=== PATIENT | male | born 1985 | race Caucasian/White ===

== ENCOUNTER 2022-09-17 08:51 | Emergency (ER) | payer OTHER ==
[~2022-09-17] VITALS: Ht 177.8 cm; Wt 86.5 kg
[~2022-09-17 08:51] MED LIST: HYDR-3706 PO
[2022-09-17] MEDS ORDERED: IPRATROPIUM BROMIDE 0.5 MG/2.5 ML NEB SOLUTION NEB ONE (12:30)
[2022-09-17] MEDS ORDERED: ALBUTEROL SULFATE 2.5 MG/0.5 ML NEB SOLUTION NEB ONE (12:30)
[2022-09-17 12:39] LABS: BASOPHILS % (AUTO) 0.4 % (0.0-2.0); EOSINOPHILS % (AUTO) 1.9 % (1.0-6.0); HEMATOCRIT 43.7 % (41-53); HEMOGLOBIN 14.8 g/dL (13.5-17.5); LYMPHOCYTES # (AUTO) 1.6 K/uL (1.0-4.8); LYMPHOCYTES % (AUTO) 28.1 % (22.0-44.0); MEAN CORPUSCULAR HEMOGLOBIN 31.9 pg (26.0-34.0); MEAN CORPUSCULAR HGB CONC 33.8 G/dL (31.0-37.0); MEAN CORPUSCULAR VOLUME 94 fL (80-100); MONOCYTES # (AUTO) 0.4 K/uL (0.1-1.0); MONOCYTES % (AUTO) 7.6 % (2.0-9.0); NEUTROPHILS # (AUTO) 3.5 K/uL (1.8-7.7); PLATELET COUNT (AUTO) 197 K/uL (150-450); RED BLOOD CELL COUNT(AUTO) 4.63 MIL/uL (4.50-5.90); RED CELL DISTRIBUTION WIDTH 13.3 % (11.5-14.5)
[2022-09-17 12:43] LABS: ANION GAP 10 mmol/L (8-16); CALCIUM, TOTAL 10.2 mg/dL (8.8-10.5); CARBON DIOXIDE 28 mmol/L (22-29); CHLORIDE 102 mmol/L (98-107); CREATININE 0.74 mg/dL (0.60-1.30); GLOMERULAR FILTR. RATE CALC > 60 mL/min (>60); GLUCOSE,RANDOM 105 mg/dL (70-110); POTASSIUM 4.4 mmol/L (3.5-5.1); SODIUM SERUM 140 mmol/L (136-145); UREA NITROGEN, BLOOD 11 mg/dL (7-18)
[2022-09-17 12:49] LABS: ALANINE AMINOTRANSFERASE 60 U/L (12-78); ALBUMIN 4.4 g/dL (3.4-5.0); ALKALINE PHOSPHATASE 95 U/L (46-116); ASPARTATE AMINOTRANSFERASE 37 U/L (15-37); BILIRUBIN,TOTAL 0.9 mg/dL (0.1-1.0); TOTAL PROTEIN, SERUM 7.9 g/dL (6.4-8.2)
[2022-09-17 12:59] LABS: B-TYPE NATRIURETIC PEPTIDE 6 pg/mL (0-100)
[2022-09-17] MEDS ORDERED: 0.9% SODIUM CHLORIDE 5 ML NEB SOLUTION NEB ONE (13:11)
[2022-09-17 13:54] LABS: COVID AG,FIA SOURCE NASAL SWAB
[2022-09-17 14:11] VITALS: BP 141/78
[2022-09-17 14:16] LABS: INFLUENZA TYPE A NEGATIVE FOR TYPE A (NEGATIVE); INFLUENZA TYPE B NEGATIVE FOR TYPE B (NEGATIVE)
[2022-09-17] MEDS ORDERED: ALBU18HF12 IH (14:34)
[2022-09-17] MEDS ORDERED: PRED-554 PO (14:35)
== END 2022-09-17 14:52 | disposition home or self-care (01) ==
LOC: EMS 09:16
DX: J45.909 Unspecified asthma, uncomplicated (principal); F12.90 Cannabis use, unspecified, uncomplicated; Z98.890 Other specified postprocedural states; Z20.822 Contact with and (suspected) exposure to COVID-19
CPT/HCPCS: 71045; 80053; 83880; 84484; 85025; 87804; 93005; 94640; 99285; 36415-L1; 36415-TC; J7613

== ENCOUNTER 2023-05-31 11:45 | Emergency (ER) | payer OTHER ==
[~2023-05-31] VITALS: Ht 172.7 cm; Wt 84.1 kg
[~2023-05-31 11:45] MED LIST changes: +ALBU18HF12 IH; +PRED-554 PO
[2023-05-31 11:48] VITALS: BP 138/82; PULSE 95; RESP 16; TEMP 97.8
[2023-05-31] MEDS: PERTUSS(ACELL),DIPH,TET/PF 0.5 ML SYRINGE [ADULT] IM. ONE (12:09)
[2023-05-31] MEDS: LIDOCAINE 1%/EPI 1:200,000/PF 30 ML VIAL SQ ONE (12:09)
[2023-05-31] MEDS: BACITRACIN 0.9 GM PACKET OINTMENT TP ONE (12:09)
== END 2023-05-31 13:14 | disposition home or self-care (01) ==
LOC: EMS 11:54
DX: S71.111A Laceration without foreign body, right thigh, initial encounter (principal); F17.210 Nicotine dependence, cigarettes, uncomplicated; F12.90 Cannabis use, unspecified, uncomplicated; F10.90 Alcohol use, unspecified, uncomplicated; Z98.890 Other specified postprocedural states; W26.8XXA Contact with other sharp object(s), not elsewhere classified, initial encounter; Y93.89 Activity, other specified; Y92.89 Other specified places as the place of occurrence of the external cause; Y99.8 Other external cause status
CPT/HCPCS: 99283; 90715; 90471; 12002; J3490

== ENCOUNTER 2023-06-10 19:17 | Emergency (ER) | payer OTHER ==
[~2023-06-10] VITALS: Ht 172.7 cm; Wt 84.0 kg
[2023-06-10 19:28] VITALS: TEMP 98.3
[2023-06-10] MEDS ORDERED: 0.9% SODIUM CHLORIDE 1000 ML IRRIG SOLUTION BOTTLE IRRIG ONE (22:00)
[2023-06-10] MEDS ORDERED: LIDOCAINE 1% 10 ML VIAL SQ ONE (22:00)
[2023-06-11 00:30] VITALS: BP 127/79; PULSE 82; RESP 16
[2023-06-11] MEDS ORDERED: CEPH-558 PO (20:57)
== END 2023-06-11 00:35 | disposition home or self-care (01) ==
LOC: EMS 19:17
DX: T81.30XD Disruption of wound, unspecified, subsequent encounter (principal); F17.210 Nicotine dependence, cigarettes, uncomplicated; F10.90 Alcohol use, unspecified, uncomplicated; F12.90 Cannabis use, unspecified, uncomplicated; Z98.890 Other specified postprocedural states; Z48.02 Encounter for removal of sutures; X58.XXXD Exposure to other specified factors, subsequent encounter; Y90.9 Presence of alcohol in blood, level not specified
CPT/HCPCS: 99284; 10160; J3490

== ENCOUNTER 2023-06-11 19:02 | Emergency (ER) | payer OTHER ==
[~2023-06-11] VITALS: Ht 172.7 cm; Wt 84.1 kg
[2023-06-11 19:42] VITALS: TEMP 98.1
[2023-06-11] MEDS ORDERED: CEPH-558 PO (20:57)
[2023-06-11] MEDS ORDERED: SODIUM CHLORIDE 0.9% 250 ML IRRIG SOLUTION BOTTLE IRRIG ONE (21:00)
[2023-06-11] MEDS ORDERED: LIDOCAINE 1% 10 ML VIAL ID ONE (21:00)
[2023-06-11] MEDS ORDERED: CEPHALEXIN MONOHYDRATE 500 MG CAPSULE PO ONE (21:00)
[2023-06-11 21:30] VITALS: BP 120/75; PULSE 78; RESP 16
== END 2023-06-11 22:13 | disposition home or self-care (01) ==
LOC: EMS 19:03
DX: S71.111D Laceration without foreign body, right thigh, subsequent encounter (principal); T81.31XD Disruption of external operation (surgical) wound, not elsewhere classified, subsequent encounter; F17.210 Nicotine dependence, cigarettes, uncomplicated; F12.90 Cannabis use, unspecified, uncomplicated; F10.90 Alcohol use, unspecified, uncomplicated; Z98.890 Other specified postprocedural states; Z48.02 Encounter for removal of sutures; X58.XXXD Exposure to other specified factors, subsequent encounter
CPT/HCPCS: 99283; 12001; J3490

== ENCOUNTER 2025-04-02 09:34 | Emergency (ER) | payer MEDICAID, OTHER ==
[~2025-04-02] VITALS: Ht 172.7 cm; Wt 91.8 kg
[~2025-04-02 09:34] MED LIST changes: -ALBU18HF12 IH; +CEPH-558 PO; -HYDR-3706 PO; -PRED-554 PO
[2025-04-02 09:37] VITALS: BP 134/89; PULSE 68; RESP 18; TEMP 97.5; O2SAT 98
[2025-04-02 10:35] LABS: PLATELET COUNT (AUTO) 224 K/uL (150-450); RED BLOOD CELL COUNT(AUTO) 4.74 MIL/uL (4.50-5.90); RED CELL DISTRIBUTION WIDTH 13.0 % (11.5-14.5); WHITE BLOOD COUNT (AUTO) 5.2 K/uL (4.5-11.0)
[2025-04-02 10:41] LABS: CALCIUM, TOTAL 9.4 mg/dL (8.8-10.5); CREATININE 0.63 mg/dL (0.60-1.30); GLOMERULAR FILTR. RATE CALC > 60 mL/min (>60); GLUCOSE,RANDOM 101 mg/dL (70-110); SODIUM SERUM 137 mmol/L (136-145); UREA NITROGEN, BLOOD 11 mg/dL (7-18)
[2025-04-02 10:41] LABS: APPEARANCE,URINE CLEAR (CLEAR); GLUCOSE, URINE (UA) NEGATIVE (NEGATIVE); LEUKOCYTE ESTERASE ,URINE NEGATIVE (NEGATIVE); NITRATE,URINE NEGATIVE (NEGATIVE); OCCULT BLOOD,URINE NEGATIVE (NEGATIVE); SPECIFIC GRAVITIY, URINE 1.018 (1.003-1.030)
[2025-04-02] MEDS: KETOROLAC TROMETHAMINE 30 MG/ML VIAL IM ONE (10:48)
[2025-04-02] MEDS: ACETAMINOPHEN 500 MG TABLET PO ONE (10:48)
[2025-04-02] MEDS: LIDOCAINE 5% TRANSDERMAL PATCH TD ONE (10:48)
[2025-04-02] MEDS ORDERED: IBUP-1492 PO (10:53)
[2025-04-02] MEDS ORDERED: ACET-3385 PO (10:53)
[2025-04-02] MEDS ORDERED: LIDO-57 TP (10:53)
== END 2025-04-02 11:08 | disposition home or self-care (01) ==
LOC: EMS 09:34
DX: S39.012A Strain of muscle, fascia and tendon of lower back, initial encounter (principal); F12.90 Cannabis use, unspecified, uncomplicated; F10.90 Alcohol use, unspecified, uncomplicated; Z98.890 Other specified postprocedural states; Y90.9 Presence of alcohol in blood, level not specified; X58.XXXA Exposure to other specified factors, initial encounter; Y93.89 Activity, other specified; Y92.89 Other specified places as the place of occurrence of the external cause; Y99.8 Other external cause status
CPT/HCPCS: 99283; 80048; 81003; 85025; 36415; 96372; J1885